=== PATIENT | male | born 1950 | race Caucasian/White ===

== ENCOUNTER 2017-11-13 16:15 | Emergency (ER) | payer MEDICARE ==
[~2017-11-13] VITALS: Ht 195.6 cm; Wt 119.0 kg
[2017-11-13 16:27] VITALS: BP 146/97
== END 2017-11-13 16:30 | disposition left against medical advice (07) ==
LOC: ED 16:15 → LWOBS 16:27
DX: Z91.19 Patient's noncompliance with other medical treatment and regimen (principal)

== ENCOUNTER 2017-12-19 11:02 | Emergency (ER) | payer MEDICARE ==
[~2017-12-19] VITALS: Ht 195.6 cm; Wt 115.0 kg
[2017-12-19] MEDS ORDERED: ULTRAM50 MG PO (11:41)
[2017-12-19] MEDS ORDERED: FLEXERIL5 M1 PO (11:41)
[2017-12-19] MEDS ORDERED: HARVONI PO (11:41)
[2017-12-19] MEDS ORDERED: TOPIRAMATE25 MG PO (11:42)
[2017-12-19] MEDS ORDERED: [UNRECOGNIZED DRUG - REMARK] PO (11:42)
[2017-12-19] MEDS ORDERED: BACTRIM DS1 TAB PO (11:43)
[2017-12-19] MEDS ORDERED: KEFLEX500 M1 PO (11:43)
[2017-12-19 11:47] VITALS: BP 128/77
== END 2017-12-19 11:47 | disposition home or self-care (01) ==
LOC: ED 11:02
DX: L03.115 Cellulitis of right lower limb (principal); I10 Essential (primary) hypertension; B19.20 Unspecified viral hepatitis C without hepatic coma; G89.29 Other chronic pain; M54.5 Low back pain

== ENCOUNTER 2020-12-21 11:26 | Observation (INO) | payer MEDICARE ==
[2020-12-21] VITALS (10 sets, daily range): BP systolic 129–166; BP diastolic 55–83
[~2020-12-21] VITALS: Ht 195.6 cm; Wt 140.0 kg
[~2020-12-21 11:26] MED LIST: BACTRIM DS1 TAB PO; FLEXERIL5 M1 PO; HARVONI PO; KEFLEX500 M1 PO; TOPIRAMATE25 MG PO; ULTRAM50 MG PO; [UNRECOGNIZED DRUG - REMARK] PO
--- NOTE | 2020-12-21 11:26 | NUR ---
PT ARRIVED BY EMS
[2020-12-21 12:11] LABS: GFR 50 ML/MIN (>=60 (CALC)); GFR FOR AFR.AMER. > 60 ML/MIN (>=60 (CALC))
[2020-12-21] MEDS ORDERED: TRAMADOL HYDROC50 M1 PO (12:31)
--- NOTE | 2020-12-21 12:32 | NUR ---
AT BEDSIDE, REPORTS HAS FALLEN 5 X IN THE LAST 24 HOURS, THIS IS NEW FOR HIM, HE REPORTED SHAKING CHILLS YEST AND INCONTINENCE X 2
[2020-12-21 12:38] LABS: ALBUMIN 3.9 g/dL (3.2-5.0); ALKALINE PHOSPHATASE 77 u/l (38-126); ANION GAP 13 (6-22 (CALC)); BILIRUBIN, TOTAL 1.2 mg/dL (0.0-1.4); BUN 16 mg/dL (8-23); BUN/CREATININE RATIO 12 (12-20 (CALC)); CARBON DIOXIDE 22 mmol/l (22-30); CHLORIDE 104 mmol/l (95-108); CREATININE 1.4 mg/dL (0.7-1.3); GFR 50 ML/MIN (>=60 (CALC)); GFR FOR AFR.AMER. > 60 ML/MIN (>=60 (CALC)); POTASSIUM 3.8 mmol/l (3.5-5.1); SGOT/AST 44 u/l (19-48); SODIUM 135 mmol/l (137-146); TOTAL PROTEIN 7.8 g/dL (6.3-8.2)
[2020-12-21 12:44] LABS: URINE BILIRUBIN - DIPSTICK NEGATIVE (NEGATIVE); URINE BLOOD DIPSTICK NEGATIVE (NEGATIVE); URINE GLUCOSE - DIPSTICK NEGATIVE (NEGATIVE); URINE KETONE NEGATIVE (NEGATIVE); URINE LEUK ESTERASE TRACE (NEGATIVE); URINE PROTEIN - DIPSTICK 30 mg/dL (NEG-TRACE); URINE SPECIFIC GRAVITY 1.025
[2020-12-21 12:44] LABS: HEMATOCRIT 41.2 % (39.0-50.0); HEMOGLOBIN 13.6 g/dl (14.0-18.0); IMMATURE GRANULOCYTES 0.5 % (0.0-5.0); MEAN CELL VOLUME 90.7 fL CALC (80.0-100.0); NEUT# 5.12 thou/uL (1.82-7.42); RED BLOOD COUNT 4.54 mill/uL (4.70-6.10); RED CELL DISTRI WIDTH 14.3 % (11.5-15.5)
[2020-12-21 12:57] LABS: URINE COLOR DK. YELLOW; URINE NITRITE - DIPSTICK NEGATIVE (Negative)
[2020-12-21 12:59] LABS: URINE AMORPH SEDIMENT MODERATE hpf (NONE-FER); URINE EPITHELIAL CELLS FEW EPI/hpf (0-FEW); URINE MUCUS MODERATE hpf (NONE-FEW)
--- NOTE | 2020-12-21 14:24 | NUR ---
ALERT ORIENTED TRANSFER TO W/C FOR MRI
--- NOTE | 2020-12-21 15:18 | NUR ---
PATIENT ARRIVED ON THE FLOOR.
--- NOTE | 2020-12-21 15:40 | NUR ---
Transfer Information Transferred To: ICU Report Given to: NURSE Transported by: [facility] Air Other Transported with: Nurse Transporter Patent IV O2 Director Gift
[2020-12-21] MEDS ORDERED: TRAMADOL HCL E100 M1 PO (16:29)
[2020-12-21] MEDS ORDERED: TRAMADOL HCL50 MG PO (16:29)
--- NOTE | 2020-12-21 16:30 | NUR ---
ADMISSION COMPLETED. PATIENT ASSESSED. BEDSIDE SWALLOW EVAL PERFORMED, NO ISSUES OBSERVED. NIH SCALE OF 0. GAVE PATIENT JUICE HE REQUESTED . SAFETY MEASURES IN PLACE. CALL LIGHT IN REACH. WILL CONTINUE TO MONITOR.
[2020-12-21] MEDS ORDERED: LYRICA50 MG PO (16:59)
[2020-12-21] MEDS ORDERED: NORVASC5 M1 PO (16:59)
[2020-12-21] MEDS ORDERED: CIALIS10 MG PO (17:00)
[2020-12-21] MEDS ORDERED: TOPIRAMATE25 MG PO (17:00)
[2020-12-21] MEDS ORDERED: TAMSULOSIN0.4 MG PO (17:00)
--- NOTE | 2020-12-21 17:50 | NUR ---
SPOKE TO PATIENT'S OVER THE PHONE GAVE HER AN UPDATE. PATIENT FINISHIG UP HIS DINNER. ECHO IS IS IN THE ROOM WITH HIM.
--- NOTE | 2020-12-21 19:45 | NUR ---
RESTING IN BED. AWAKE, ALERT AND ORIENTED X4. SPEECH CLEAR WITH APPROPRIATE RESPONSES TO QUESTIONS. FACE SYMMETRICAL. TONGUE MIDLINE ON EXTENSION. FOLLOWS DIRECTIONS. MOVES ALL EXTREMITIES EQUAL AND WELL. NIH 0. DENIES HEADACHE, VISUAL DISTURBANCES, NUMBNESS OR TINGLING. RESP NON-LABORED. O2 ON AT 2 L NC. BREATH SOUNDS CLEAR THROUGHOUT LUNG SOLANO. NO PERIPHERAL EDEMA, PULSES INATCT. SALINE LOCK INTACT IN RAC AND RH, BOTH SITES BENIGN, DSG CDI. TRAINER SHOWS SR. DISCUSSED PLAN OF CARE. DENIES NEEDS AT THIS TIME. CALL TRAVIS IN REACH.
--- NOTE | 2020-12-21 21:00 | NUR ---
PATIENT ON HIS CELL PHONE SPEAKING WITH FAMILY.
--- NOTE | 2020-12-21 21:45 | NUR ---
RESTING IN BED, WATCHING TV. NO COMPLAINTS VOICED. VSS. MEDICATED WITH UTRAM ORDERED FOR C/O BACKPAIN.
--- NOTE | 2020-12-21 23:55 | NUR ---
ASLEEP. RESP NON-LABORED. VSS. MONITOR SR.
[2020-12-22] VITALS (10 sets, daily range): BP systolic 149–189; BP diastolic 65–93
--- NOTE | 2020-12-22 02:00 | NUR ---
RESTING WITH EYES CLOSED. RESP NON-LABORED. VSS. SR ON MONITOR.
--- NOTE | 2020-12-22 04:10 | NUR ---
SLEEPS SOUNDLY. RESP EVEN AND UNLABORED. VSS. SR ON MONITOR.
--- NOTE | 2020-12-22 05:00 | NUR ---
PATIENT AWAKE TO VOID. NO NEURO DEFICITS NOTED. VSS.
--- NOTE | 2020-12-22 06:03 | NUR ---
PHARMACOMETRICIAN HERE FOR AM LAB DRAW. PATIENT AWAKE, ALERT AND ORIENTED. VSS. SR ON MONITOR.
[2020-12-22 06:16] LABS: HEMATOCRIT 41.6 % (39.0-50.0); HEMOGLOBIN 13.5 g/dl (14.0-18.0); MEAN CELL VOLUME 92.4 fL CALC (80.0-100.0); MEAN CORPUSCULAR HGB CONC 32.5 g/dL CAL (32.0-36.0); RED BLOOD COUNT 4.5 mill/uL (4.70-6.10); RED CELL DISTRI WIDTH 14.4 % (11.5-15.5)
--- NOTE | 2020-12-22 06:42 | NUR ---
pt resting comfortably. nad. vss. burglar alarm mechanic to monitor.
[2020-12-22 06:47] LABS: ANION GAP 13 (6-22 (CALC)); BUN 14 mg/dL (8-23); BUN/CREATININE RATIO 13 (12-20 (CALC)); CALCULATED LDLCHOLESTEROL 103 mg/dL (62-129 (CALC)); CARBON DIOXIDE 22 mmol/l (22-30); CHLORIDE 103 mmol/l (95-108); CHOLESTEROL HDL RATIO 4.7 (<4.4 (CALC)); CREATININE 1.1 mg/dL (0.7-1.3); GFR > 60 ML/MIN (>=60 (CALC)); GFR FOR AFR.AMER. > 60 ML/MIN (>=60 (CALC)); HDL CHOLESTEROL 34 mg/dL (>=40); POTASSIUM 4.3 mmol/l (3.5-5.1); SODIUM 134 mmol/l (137-146); TOTAL CHOLESTEROL 161 mg/dl (0-199); TOTAL TRIGLYCERIDES 118 mg/dl (30-149); VLDL CHOLESTROL 24 mg/dl (0-38 (CALC))
--- NOTE | 2020-12-22 07:35 | NUR ---
pt awake in bed; no apparent distress noted; pt offers complaints of back pain; assessment completed at this time; pt alert and oriented; no n/v noted; resp even and unlabored; lungs clear; skin color wnl; o2 per nc at 2L; hr reg; strong pulses; no edema noted; sr on monitor; abd soft with bs present; no bm noted per database report writer; pt voiding without complication; no redness or edema noted at site; #20 saline locked to rac and rh; no redness or edema noted at site; abrasion noted to right knee s/p fall; NIH 0; pt noted to have problems finding words; no weakness noted per this database report writer at this time; plan of care/am meds explained; pt with complaints of chronic back pain rating 6/10; will medication; call light within reach; will continue to monitor
--- NOTE | 2020-12-22 08:00 | NUR ---
pt awake in bed eating breakfast; no apparent distress noted; medicated for pain; iv' intact; sr on monitor; will continue to monitor
--- NOTE | 2020-12-22 08:10 | NUR ---
speech therapy present at bedside
--- NOTE | 2020-12-22 08:35 | NUR ---
Dr Lyle present at bedside to assess pt and discuss plan of care
--- NOTE | 2020-12-22 09:48 | NUR ---
OT present at bedside
--- NOTE | 2020-12-22 10:00 | NUR ---
awake in room; PT at bedside to work with pt; sr on monitor; iv's intact; no apparent distress noted; no decline in neuro status; will continue to monitor
--- NOTE | 2020-12-22 12:00 | NUR ---
awake in bed conversing on cell phone; no apparent distress noted; iv intact; o2 per nc; no changes in neuro status; call light within reach; will continue to monitor
--- NOTE | 2020-12-22 12:37 | NUR ---
pt transferred to CT scan via wc in stable condition; staff remains with pt
--- NOTE | 2020-12-22 14:05 | NUR ---
awake in bed; spouse present at bedside to assist with bath; iv intact; no apparent distress noted; pt offers no complaints; call light within reach; will continue to monitor
--- NOTE | 2020-12-22 14:54 | NUR ---
pt ambulatory to nurses station with staff x2; steady gait noted; pt deny weakness or shakiness; pt inquiring about discharge; aware test reports have not been released; will continue to monitor
--- NOTE | 2020-12-22 16:14 | NUR ---
pt resting in bed with eyes closed; no apparent distress noted; iv intact; sr on monitor; easily aroused; no changes in neuro status; call light within reach; will continue to monitor
--- NOTE | 2020-12-22 16:38 | NUR ---
Dr Lyle called per chief writer; home meds to be reviewed
--- NOTE | 2020-12-22 18:10 | NUR ---
awake conversing on cell phone; no apparent distress noted; pt offers no complaints; iv intact; sr on monitor; ra; no changes in neuro status; call light within reach
--- NOTE | 2020-12-22 19:30 | NUR ---
REPORT GIVEN BY ADRIANNA. PATIENT RESTING IN BED WATCHING TV. RESP EVEN AND UNLABORED. NO S/S OF DISTRESS NOTED. FALL AND SAFTEY PRECAUTIONS IN PLACE. PATIENT STATES THAT IT SEEMS THAT HIS SYMPTOMS HAVE RESOLVED. IV SALINE LOCKED. USING THE URINAL AT THE BEDSIDE. PLAN OF CARE DISCUSSED. PATIENT INFORMED TO CALL WITH ANY QUESTIONS OR CONCERNS.
--- NOTE | 2020-12-22 22:00 | NUR ---
PATIENT RESTING WITH EYES CLOSED. RESP EVEN AND UNLABORED. NO S/S OF DISTRESS NOTED.
[2020-12-23] VITALS: BP 176/70
--- NOTE | 2020-12-23 00:04 | NUR ---
PATIENT RESTING WITH EYES CLOSED. RESP EVEN AND UNLABORED. NO S/S OF DISTRESS NOTED. FALL AND SAFTEY PRECAUTIONS IN PLACE.
[2020-12-23 02:00] VITALS: BP 163/69
--- NOTE | 2020-12-23 02:00 | NUR ---
PATIENT USED A GLASS THAT WAS ON THE BEDSIDE TABLE FOR A URINAL. PATIENT CALLED OUT TO STAFF TO HELP CLEAN UP THE MESS. PATIENT REMOVED TELE AND BP CUFF TO USE THE BATHROOM TO HAVE A BOWEL MOVEMENT. NO S/S OF DISTRESS NOTED. FALL AND SAFTEY PRECAUTIONS IN PLACE.
[2020-12-23 04:00] VITALS: BP 161/72
--- NOTE | 2020-12-23 04:55 | NUR ---
PATIENT RESTING WITH EYES CLOSED. NO S/S OF DISTRESS NOTED. FALL AND SAFTEY PRECAUTIONS IN PLACE.
--- NOTE | 2020-12-23 07:05 | NUR ---
pt awake in bed; no apparent distress noted; assessment completed at this time; pt alert and oriented; admits to back pain; will medicate; no n/v noted; resp even and unlabored; lungs clear; skin color wnl; ra; hr reg; strong pulses; no edema noted; sr on monitor; abd soft with bs present; no bm noted per medical underwriter; pt voiding taylor urine; urinal at bedside; #20 flushed and patent to rac and rh; no redness or edema noted at sites; abrasions noted to right forehead and right knee; negative NIH; plan of care/ am meds explained; call light within reach; will continue to monitor
[2020-12-23 08:07] VITALS: BP 174/95
--- NOTE | 2020-12-23 08:13 | NUR ---
awake in bed; bp elevated; am meds prev administered; pt medicated for complaints of back pain; sr on monitor; inquiring discharge; iv intact; call light within reach; will continue to monitor
--- NOTE | 2020-12-23 09:11 | NUR ---
Dr Walsh and Rashaun Beard present at bedside to assess pt and discuss plan of care
[2020-12-23] MEDS ORDERED: ADLT ASA LOW81 MG PO (09:16)
--- NOTE | 2020-12-23 09:56 | NUR ---
Nunu from Hospice present at bedside
[2020-12-23 10:17] VITALS: BP 166/77
--- NOTE | 2020-12-23 10:18 | NUR ---
awake in bed; no apparent distress; iv intact; sr on monitor; call light within reach; will continue to monitor
--- NOTE | 2020-12-23 10:38 | NUR ---
PT at bedside
--- NOTE | 2020-12-23 10:56 | NUR ---
Patient did bed mobility log rolling and sit to stand push off transfer ADLs with Mod I level with occasional verbal cuing to decrease trick movements and fall risks. Patient did Tinetti balance test and scored 26/28 and TUG test score at 12 seconds, both indicative for low fall risks and improving dynamic balance capability on a variety of walking surfaces. Patient also did B LE AROM exercises in seated position doing hip flexion, hip extension, hip adduction and abduction, hamstring curls, knee extension, and ankle AROM for 10 reps x 2 sets with occasional verbal and tactile cuing with Mod I level.
--- NOTE | 2020-12-23 11:11 | NUR ---
awake in bed; discharge instructions reviewed; iv's removed with cath tips intact; awaiting spouse machine operator picker;
--- NOTE | 2020-12-23 11:35 | NUR ---
spouse present at bedside; discharge instructions reviewed with spouse and she admits to understanding; Discharge instructions given. Patient verbalizes understanding of same. Discharged in good condition via Wheelchair to Home with spouse. All belongings sent with pt.
== END 2020-12-23 11:35 ==
LOC: ED 11:26 → ED-I 13:10 → ED 14:29 → ICU 14:30
PROVIDERS: Family Medicine; Nurse Practitioner; ADMIT Internal Medicine; ATTEND Internal Medicine
DX: R47.01 Aphasia (principal); R47.1 Dysarthria and anarthria; I67.82 Cerebral ischemia; R53.1 Weakness; R25.1 Tremor, unspecified; S00.81XA Abrasion of other part of head, initial encounter; R09.02 Hypoxemia; I10 Essential (primary) hypertension; S80.212A Abrasion, left knee, initial encounter; S80.211A Abrasion, right knee, initial encounter; B19.20 Unspecified viral hepatitis C without hepatic coma; M54.9 Dorsalgia, unspecified; G89.29 Other chronic pain; W19.XXXA Unspecified fall, initial encounter; Z91.81 History of falling; Z20.822 Contact with and (suspected) exposure to COVID-19
CPT/HCPCS: Q9967

== ENCOUNTER 2021-04-23 16:17 | Inpatient (IN) | payer MEDICARE ==
[~2021-04-23] VITALS: Ht 195.6 cm; Wt 137.0 kg
[~2021-04-23 16:17] MED LIST changes: +ADLT ASA LOW81 MG PO; +CIALIS10 MG PO; +LYRICA50 MG PO; +NORVASC5 M1 PO; +TAMSULOSIN0.4 MG PO; +TRAMADOL HCL E100 M1 PO; +TRAMADOL HCL50 MG PO; +TRAMADOL HYDROC50 M1 PO
--- NOTE | 2021-04-23 16:55 | NUR ---
TO ROOM TO TRIAGE
[2021-04-23 17:36] LABS: HEMATOCRIT 45.1 % (39.0-50.0); HEMOGLOBIN 14.7 g/dl (14.0-18.0); IMMATURE GRANULOCYTES 0.4 % (0.0-5.0); MEAN CELL VOLUME 92.4 fL CALC (80.0-100.0); MEAN CORPUSCULAR HGB 30.1 pG CALC (26.0-32.0); MEAN CORPUSCULAR HGB CONC 32.6 g/dL CAL (32.0-36.0); NEUT# 3.64 thou/uL (1.82-7.42); RED BLOOD COUNT 4.88 mill/uL (4.70-6.10); RED CELL DISTRI WIDTH 14.5 % (11.5-15.5)
[2021-04-23 17:52] LABS: ALBUMIN 4.1 g/dL (3.2-5.0); CREATININE 1.6 mg/dL (0.7-1.3); POTASSIUM 3.8 mmol/l (3.5-5.1); TOTAL PROTEIN 8.6 g/dL (6.3-8.2)
[2021-04-23 18:01] LABS: BILIRUBIN, TOTAL 1.8 mg/dL (0.0-1.4)
--- NOTE | 2021-04-23 18:33 | NUR ---
Reassessment of patient completed. No distress noted.
--- NOTE | 2021-04-23 19:45 | NUR ---
TRT START HIGH FLOW CANNULA ON THE PATIENT
[2021-04-23 22:03] LABS: URINE BLOOD DIPSTICK MODERATE (NEGATIVE); URINE GLUCOSE - DIPSTICK NEGATIVE (NEGATIVE); URINE KETONE NEGATIVE (NEGATIVE); URINE LEUK ESTERASE NEGATIVE (NEGATIVE); URINE PROTEIN - DIPSTICK 100 mg/dL (NEG-TRACE); URINE SPECIFIC GRAVITY >=1.030
[2021-04-23 22:07] LABS: URINE BILIRUBIN - DIPSTICK SMALL (NEGATIVE); URINE COLOR AMBER; URINE NITRITE - DIPSTICK POSITIVE (Negative)
[2021-04-23 22:21] LABS: URINE BACTERIA RARE hpf; URINE WBC 0-2 WBC/hpf (0-5)
[2021-04-23 22:22] LABS: URINE COARSE GRANULAR CAST MANY lpf
--- NOTE | 2021-04-23 22:37 | NUR ---
PT. CONT. TO REMOVE O2. SAT'S DECREASE TO 82-83%. PT. INSTRUCTED TO LEAVE O2 NC IN PLACE, VERBALIZED UNDERSTANDING.
--- NOTE | 2021-04-23 22:55 | NUR ---
RESP. THERAPIST IN ROOM TO SPEAK WITH PT.
--- NOTE | 2021-04-24 00:38 | NUR ---
PT. HAS BEEN KEEPING HIS O2 IN PLACE, O2 SAT NOW 91%.
--- NOTE | 2021-04-24 04:06 | NUR ---
RESTING QUIETLY EYES CLOSED, AWAKENS EASILY, RESP. EVEN AND UNLABORED. O2 ON. NO C/O.
[2021-04-24 04:53] LABS: HEMATOCRIT 45.2 % (39.0-50.0); HEMOGLOBIN 14.7 g/dl (14.0-18.0); IMMATURE GRANULOCYTES 0.9 % (0.0-5.0); MEAN CORPUSCULAR HGB 30.6 pG CALC (26.0-32.0); MEAN CORPUSCULAR HGB CONC 32.5 g/dL CAL (32.0-36.0); NEUT# 2.69 thou/uL (1.82-7.42); RED BLOOD COUNT 4.81 mill/uL (4.70-6.10); RED CELL DISTRI WIDTH 14.3 % (11.5-15.5)
--- NOTE | 2021-04-24 04:53 | NUR ---
PT. PLACED ON HOSPITAL BED FOR COMFORT.
[2021-04-24 05:11] LABS: ALBUMIN 3.8 g/dL (3.2-5.0); BILIRUBIN, TOTAL 1.2 mg/dL (0.0-1.4); C-REACTIVE PROTEIN 5.3 mg/dL (0-0.9); CREATININE 1.5 mg/dL (0.7-1.3); TOTAL PROTEIN 7.7 g/dL (6.3-8.2)
[2021-04-24 05:15] LABS: POTASSIUM 4.8 mmol/l (3.5-5.1)
--- NOTE | 2021-04-24 05:30 | NUR ---
PT. INCONTINENT OF A MODERATE AMT. OF URINE, [place] CARE GIVEN WITH COMPLETE BED CHANGE. O2 SAT DECREASED DURINE BED CHANGE. AND WILL RISE SLOWLY.
--- NOTE | 2021-04-24 06:30 | NUR ---
REPORT TO AJKUB SHARIF.
--- NOTE | 2021-04-24 07:00 | NUR ---
REPORT RECEIVED FROM CHANTE LOJA
[2021-04-24] MEDS ORDERED: ATORVASTATIN CA10 MG PO (08:02)
--- NOTE | 2021-04-24 08:15 | NUR ---
PT FINISHED BREAKFAST. VITALS STABLE. NOW ON VAPOTHERM 40L/MIN SAT'S IN THE LOW 90'S. NO DISTRESS OR LABORED BREATHING NOTED. TOLERATING WELL AT THIS TIME. CALL LIGHT WITHIN REACH, BED IN LOW POSITION.
--- NOTE | 2021-04-24 09:17 | NUR ---
IV MEDS INFUSING WITHOUT DIFFICULTY. MORNING MEDS GIVEN. TOLERATED WELL.
--- NOTE | 2021-04-24 10:07 | NUR ---
RESTING, EYES CLOSED. NO CHANGES
--- NOTE | 2021-04-24 10:47 | NUR ---
JACKY RUSHING TO RT TO START THE PATIENT IN A NON REBLIND
--- NOTE | 2021-04-24 11:10 | NUR ---
RT START THE PATIENT IN A VAPORTERM AT 40 LT AND NON REBLIDING AT 20%
--- NOTE | 2021-04-24 12:00 | NUR ---
PATIENT WAS SWITCH TO BPAP
--- NOTE | 2021-04-24 18:45 | NUR ---
Reassessment of patient completed. No distress noted.
--- NOTE | 2021-04-24 21:14 | NUR ---
Transfer Information Transferred To: ICU Report Given to: DANO SHARIF Transported by: N [facility] Y [facility] Transport [facility]. N Air N Other Transported with: Y Nurse Y Transporter Y Patent IV Y O2 Y Leather Stamper
--- NOTE | 2021-04-24 21:30 | NUR ---
RECEIVED FROM ER VIA BED ON BIPAP, ACCOMPANIED BY RT AND ER NURSE. PLACED ON PEDIATRICS HOSPITALIST SHOWING SR. O2 SAT 96%
--- NOTE | 2021-04-24 21:45 | NUR ---
RESP SLT LABORED AT REST. ON BIPAP 18/10, RR 24, FIO2 100% BREATH SOUNDS DIMINISHED THROUGHOUT. NO PERIPHERAL EDEMA, PULSE INTACT. DISCUSSED PLAN OF CARE. DENIES NEEDS AT THIS TIME. CALL TRAVIS IN REACH.
[2021-04-24 22:00] VITALS: BP 156/97
[2021-04-24 23:00] VITALS: BP 160/94
[2021-04-25] VITALS (25 sets, daily range): BP systolic 148–195; BP diastolic 80–104
--- NOTE | 2021-04-25 | NUR ---
PATIENT IS AWAKE, WATCHING TV. NO COMPLAINTS VOICED. TOLERATING BIPAP WELL. O2 SAT 96%
--- NOTE | 2021-04-25 02:00 | NUR ---
RESTING WITH EYES CLOSED. VSS. BIPAP IN PLACE SAME SETTINGS.
--- NOTE | 2021-04-25 04:00 | NUR ---
RESTING WITH EYES CLOSED. VSS. SR ON MONITOR.
--- NOTE | 2021-04-25 05:45 | NUR ---
MEDICATED WITH ULTRAM FOR C/O PAIN. REMAINS ON BIPAP VSS. SR ON MONITOR. IV NS AT 75 ML/HR INFUSING WITHOUT INCIDENT. VSS.
[2021-04-25 06:17] LABS: ALBUMIN 3.5 g/dL (3.2-5.0); ALKALINE PHOSPHATASE 66 u/l (38-126); ANION GAP 14 (6-22 (CALC)); BILIRUBIN, TOTAL 0.9 mg/dL (0.0-1.4); BUN 40 mg/dL (8-23); BUN/CREATININE RATIO 34 (12-20 (CALC)); CARBON DIOXIDE 26 mmol/l (22-30); CHLORIDE 109 mmol/l (95-108); CREATININE 1.2 mg/dL (0.7-1.3); GFR 60 ML/MIN (>=60 (CALC)); GFR FOR AFR.AMER. > 60 ML/MIN (>=60 (CALC)); SGOT/AST 192 u/l (19-48); SODIUM 145 mmol/l (137-146); TOTAL PROTEIN 7.5 g/dL (6.3-8.2)
[2021-04-25 06:20] LABS: HEMATOCRIT 44.9 % (39.0-50.0); HEMOGLOBIN 14.5 g/dl (14.0-18.0); IMMATURE GRANULOCYTES 0.5 % (0.0-5.0); MEAN CELL VOLUME 93.9 fL CALC (80.0-100.0); MEAN CORPUSCULAR HGB 30.3 pG CALC (26.0-32.0); MEAN CORPUSCULAR HGB CONC 32.3 g/dL CAL (32.0-36.0); NEUT# 5.58 thou/uL (1.82-7.42); RED BLOOD COUNT 4.78 mill/uL (4.70-6.10)
[2021-04-25 07:19] LABS: POTASSIUM 3.8 mmol/l (3.5-5.1)
--- NOTE | 2021-04-25 07:30 | NUR ---
PATIENT IN BED AT THIS TIME ON BI-PAP. PATIENT STATES HE ONLY HAS SOME DISCOMFORT WHEN HE BREATHS IN DEEP. PATIENT STATES AT THIS TIME HE DOESN'T HAVE PAIN. PATIENT HAS NO COUGH AT THIS TIME. BREATH SOUNDS AND LUNG FIELD ARE DIMINISHED. PATIENTS SPO2 IS CURRENTLY 93%. PATIENT HAS FLAKY SKIN TO FOREHEAD PATINET IS ALERT AND ORIENTED X 3. SIDERAILS ARE UP CALL LIGHT WITHIN REACH SPORTS INFORMATION DIRECTOR IS READING 68 S/R AT THIS TIME. WILL CONTINUE TO MONITOR.
--- NOTE | 2021-04-25 08:18 | NUR ---
PT PLACED ON VAPOPHAM. 40l 100% SAT 90%
--- NOTE | 2021-04-25 09:09 | NUR ---
RESPIRATORY PLACED PATIENT ON VAPOR-THERM AT THIS TIME SETTINGS ARE 40L/100% HUMIDITY AND A NON RE-BREATHER IF PATIENT IS SHORT OF BREATH. PATIENTS SPO2 AT THIS TIME IS 2% WILL CONTINUE TO MONITOR,,.
--- NOTE | 2021-04-25 10:00 | NUR ---
PATIENT RESTING IN BED AT THIS TIME. PATIENT PER RESPIRATORY IS BEING PLACED BACK ON BI-PAP AT THIS TIME DUE TO SPO2 ON VAPO-THERM ONLY 84%. PATIENT STATES HIS PAIN LEVEL IS "0" AT THIS TIME BUT WILL CONTINUE TO MONITOR.
--- NOTE | 2021-04-25 12:00 | NUR ---
LUAN REMAINS ON BI-PAP AT THIS TIME. PATIENT DENIES ANY NEEDS CURRENTLY SPO2 AT THIS TIME IS 94%. GAS METER READER READING SR AT HR 75. SIDERAILS ARE UP X TWO CALL LIGHT IS WITHIN REACH. WILL CONTINUE TO MONITOR.
--- NOTE | 2021-04-25 13:18 | NUR ---
PATIENT REMAINS ON BI-PAP RESTING COMFORTABLY IN BE DENEIS ANY NEED FOR PAIN MEDICATION AT THIS TIME.
--- NOTE | 2021-04-25 14:05 | NUR ---
PATIENT COMPLAINING OF GENERALIZED BODY PAIN AT THIS TIME. PATIENT STATES IT IS A "4" OUT OF THE PAIN SCALE OF 0-10. 15MG OF TORODOL GIVEN IV AT THIS TIME WILL CONTINUE TO MONITOR. PATIENT REMAINS ON BI-PAP AT THIS TIME AND SPO2 CURRENTLY IS 93% AT THIS TIME. SAND MOLDER IS READING SR/HR OF 77 WITH ONE PVC. SIDERAILS ARE UP CALL LIGHT IS WIHTIN REACH.
--- NOTE | 2021-04-25 14:30 | NUR ---
PATIENT STATES PAIN MEDICATION WORKING AND PAIN LEVEL IS DOWN TO A "2" OUT OF THE PAIN SCALE OF 0-10.
--- NOTE | 2021-04-25 15:47 | NUR ---
RESPIRATORY CALLED AT THIS TIME DUE TO PATIENT WANTING TO COME OFF OF THE BI-PAP TO EAT AT THIS TIME. RT CALLED AND STATED THEY WOULD BE OVER TO TAKE PATIENT OFF OF BI-PAP AND TO MONITOR. SPO2 CURRENTLY AT THIS TIME IS 94%
--- NOTE | 2021-04-25 16:05 | NUR ---
PATIENT LAYING IN BED AT THIS TIME OFF OF BI-PAP AND ON VAPO-THERM WHILE EATING. [place] MACHINE OPERATOR READING SR/HR OF 82 WITH OCCASSIONAL PVC'S CURRENT SPO2 IS 89% AND PATIENT ADVISED TO USE NON-REBREATER HELP TO MAINTAIN O2 ABOVE 90% WHILE BEING OFF OF BI-PAP. PATIENT DENIES ANY PAIN AT THIS TIME AND SIDERAILS ARE UP CALL LIGHT IS WITHIN REACH.
--- NOTE | 2021-04-25 18:09 | NUR ---
PATIENT RESTING IN BED AT THIS TIME ON BI-PAP BLOOD PRESSURE IS 183/104 10MG OF APRESOLINE GIVEN AT THIS TIME WILL MONITOR BP.
--- NOTE | 2021-04-25 18:30 | NUR ---
PATIENTS BP RE-CHECKED AT THIS TIME IS 178/84 BP IS TRENDING DOWN SINCE APRESOLINE 10MG GIVEN AT 1815. WILL CONTINUE TO MONITOR.
--- NOTE | 2021-04-25 19:45 | NUR ---
awake. voiding. bipap pushed to side of face-replaced. instructed pt about need for bipap. sob with ANY exertion. desats quickly into the 80's. vehicle monitor technician shows sinus rhythm hr 76. #20 lfa ns infusing @ 75cchr. po fluids taken poor. voids per urinal. fall & air/contact precautions cont.
--- NOTE | 2021-04-25 21:45 | NUR ---
medicated for cough as requested.
[2021-04-26] VITALS (18 sets, daily range): BP systolic 91–203; BP diastolic 52–115
--- NOTE | 2021-04-26 00:01 | NUR ---
awake. watching tv. resps remain labored. bipap cont
--- NOTE | 2021-04-26 02:00 | NUR ---
awake. bipap conts.
--- NOTE | 2021-04-26 04:15 | NUR ---
lab here. blood drawn.
[2021-04-26 05:17] LABS: HEMATOCRIT 44.2 % (39.0-50.0); HEMOGLOBIN 14.2 g/dl (14.0-18.0); MEAN CELL VOLUME 93.2 fL CALC (80.0-100.0); MEAN CORPUSCULAR HGB CONC 32.1 g/dL CAL (32.0-36.0); RED BLOOD COUNT 4.74 mill/uL (4.70-6.10); RED CELL DISTRI WIDTH 13.9 % (11.5-15.5)
[2021-04-26 05:38] LABS: ANION GAP 12 (6-22 (CALC)); BUN 31 mg/dL (8-23); BUN/CREATININE RATIO 35 (12-20 (CALC)); CARBON DIOXIDE 26 mmol/l (22-30); CHLORIDE 113 mmol/l (95-108); CREATININE 0.9 mg/dL (0.7-1.3); GFR > 60 ML/MIN (>=60 (CALC)); GFR FOR AFR.AMER. > 60 ML/MIN (>=60 (CALC)); POTASSIUM 4.1 mmol/l (3.5-5.1); SODIUM 146 mmol/l (137-146)
[2021-04-26 05:43] LABS: MAGNESIUM 2.7 mg/dL (1.6-2.3)
--- NOTE | 2021-04-26 06:00 | NUR ---
awake all night. bipap cont. cafeteria monitor shows sinus rhythn hr 81.
--- NOTE | 2021-04-26 08:15 | NUR ---
PATIENT LAYING IN BED AT THIS TIME. RESPIRATORY IN TO PLACE PATIENT ON VAPO-THERM TO EAT. PATIENTS SP02 IS 88% AT THIS TIME. PATIENT RE-EDUCATED ON GOING BACK ON BI-PAP AFTER BREAKFAST. PATIENT'S WEED CONTROL INSPECTOR DONE AT THIS TIME SEE INTERVENTIONS. DR. BROOKS NOTIFIED OF BLOOD PRESSURE INCREASE AND NEW ORDERS GIVEN AT THIS TIME. SIDERAILS ARE UP CALL LIGHT IS WITHIN REACH.
--- NOTE | 2021-04-26 09:48 | NUR ---
PATIENT PLACED BACK ON BI-PAP AT THIS TIME AND SPO2 IS NOW 93% AT THIS TIME. WILL CONTIUE TO MONITOR.
--- NOTE | 2021-04-26 10:09 | NUR ---
PATIENT LAYING IN BED AT THIS TIME. PATIENT IS ON BI-PAP AND SPO2 AT THIS TIME IS 96%. PATIENT BP IS 180/88 AND IS DECREASING SINCE ADDED 5MG OF AMOLODIPINE AND 10 MG OF LISINOPRIL THAT WAS GIVNEN AT 09:30. PATIENT WILL CONTINUE TO BE MONITORED AT THIS TIME.
--- NOTE | 2021-04-26 10:30 | NUR ---
pt on niv c nnad. in bed, awake. comfortable. vss. no changes at this time. neck band maker to monitor.
--- NOTE | 2021-04-26 11:04 | NUR ---
PHYSICAL THERAPY IN TO SEE PATIENT AT THIS TIME. PATIENT HELP UP TO THE CHAIR AT THIS TIME. PATIENT SITTING IN CHAIR ON BI-PAP WILL CONTINUE TO MONITOR.
--- NOTE | 2021-04-26 12:15 | NUR ---
PATIENT REMAINS UP IN CHAIR AT THIS TIME. PATIENT REMAINS ON BI-PAP AND SPO2 CURRENTLY AT THIS TIME IS 100%. PATIENTS BP AT THIS TIME IS 168/89. PATIENT WILL CONTINUE TO BE MONITORED. CALL LIGHT AND PERSONAL ITEMS ARE WITHIN REACH AT THIS TIME.
--- NOTE | 2021-04-26 14:05 | NUR ---
PATIENT UP STANDING AT BEDSIDE AT THIS TIME. PATIENT ADVISED TO SIT IN CHAIR AND BI-PAP FACE MASK ADJUSTED ACCORDINGLY. PATIENT SPO2 IS CURRENTLY 100% AND BP IS CURRENTLY 153/83. PATIENT CALL LIGHT REMAINS NEAR WELL PERSONAL BELONGINGS. PATIENT WILL CONTINUE TO BE MONITORED.
--- NOTE | 2021-04-26 15:08 | NUR ---
weaned pr pt spo2.
--- NOTE | 2021-04-26 16:10 | NUR ---
PATIENT REMAINS UP IN CHAIR AT THIS TIME. PATIENT REMAINS ON BI-PAP AND SETTINGS ARE UNCHANGED. PATIENTS CYLINDER DIE MACHINE OPERATOR IS READING AT THIS TIME. SR/HR 94 AND SPO2 IS 91%. PATIENT SHOWS SING OF SHORTNESS OF BREATH UPON EXCERTIONS OF ANY KIND. CALL LIGHT IS WITHIN REACH WELL PERSONAL BELONGINGS.
--- NOTE | 2021-04-26 17:39 | NUR ---
PATIENT TAKEN OFF OF BI-PAP AT THIS TIME TO EAT DINNER. PATIENT SHOWS NO SIGNS OF RESPIRATORY DISTRESS AT THIS TIME. PATIENTS PULSE OX IS 88% PATIENT REMEINDED TO SLOW RESPIRATIONS DOWN AND CONCENTRATE ON BREATHING. PATIENT FOLLOWING ALL COMMANDS AND EATING DINNER WELL. WILL CONTINUE TO MONITOR.
--- NOTE | 2021-04-26 19:00 | NUR ---
pulse ox shows 73%. bipap off & is alarming. pt has bipap off-replaced. spoke to pt FIRMLY about benefits of bipap. pt verbalized understanding. site monitor shows sinus rhythm. #20 rfa ns infusing @ 75cchr. po fluids taken fair. voided per urinal. fall & air/contact precautions cont.
--- NOTE | 2021-04-26 20:58 | NUR ---
medicated for cough as requested.
[2021-04-27] VITALS (36 sets, daily range): BP systolic 85–209; BP diastolic 52–119
--- NOTE | 2021-04-27 00:01 | NUR ---
awake. anxious. expressed his fear. said "i'm afraid." pt reassured.
--- NOTE | 2021-04-27 02:00 | NUR ---
taking short naps. sob w any exert.
--- NOTE | 2021-04-27 03:30 | NUR ---
has removed bipap twice in 15 minutes. sats dropped to 73%-replaced. pt c/o sob. took several minutes before pt recover to a sat of 94%.
--- NOTE | 2021-04-27 04:00 | NUR ---
lab here. blood drawn.
[2021-04-27 04:32] LABS: HEMOGLOBIN 14.7 g/dl (14.0-18.0); MEAN CELL VOLUME 93.9 fL CALC (80.0-100.0); NEUT# 7.54 thou/uL (1.82-7.42); RED BLOOD COUNT 4.9 mill/uL (4.70-6.10); RED CELL DISTRI WIDTH 14.1 % (11.5-15.5)
[2021-04-27 05:04] LABS: ALBUMIN 3.4 g/dL (3.2-5.0); ALKALINE PHOSPHATASE 77 u/l (38-126); ANION GAP 11 (6-22 (CALC)); BUN 24 mg/dL (8-23); BUN/CREATININE RATIO 26 (12-20 (CALC)); C-REACTIVE PROTEIN 3.9 mg/dL (0-0.9); CARBON DIOXIDE 25 mmol/l (22-30); CHLORIDE 116 mmol/l (95-108); CREATININE 0.9 mg/dL (0.7-1.3); GFR > 60 ML/MIN (>=60 (CALC)); GFR FOR AFR.AMER. > 60 ML/MIN (>=60 (CALC)); POTASSIUM 4.4 mmol/l (3.5-5.1); SGOT/AST 173 u/l (19-48); SODIUM 148 mmol/l (137-146); TOTAL PROTEIN 7.2 g/dL (6.3-8.2)
--- NOTE | 2021-04-27 05:52 | NUR ---
bipap conts. electronic device monitor shows sinus tach 105.
--- NOTE | 2021-04-27 07:00 | NUR ---
ASSUMED CARE OF MD FROM PERCY IBANEZ. PT IS IN ST ON MONITOR. PT PULLING AT BIPAP. REMINDED PT TO LEAVE IT ON AND NOT TO PULL AT IT.
--- NOTE | 2021-04-27 07:40 | NUR ---
PT CONTINUING TO PULL AT BIPAP. DISCUSSED NEXT STEP IS INTUBATION AND TO LEAVE THE BIPAP ON. PT MEDICATED PER EMAR, INCLUDING PRNS FOR HTN AND PAIN. PT LACED ON SIDE TO TRY TO ASSIST WITH BREATHING.
--- NOTE | 2021-04-27 11:25 | NUR ---
PT PULLING AT BIPAP AND TRYING TO USE URINAL. PT REMINDED TO LEAVE BIPAP ALONE. BATHED PT WITH COREEN OLIVO AND REPOSITIONED HIM. PT DENIES ANY FURTHER NEEDS AT THIS TIME
--- NOTE | 2021-04-27 11:32 | NUR ---
no chnages at this time. paperhanger pipe to monitor.
--- NOTE | 2021-04-27 12:15 | NUR ---
PT SLEEPING IN BED, BP DECREASED TO WNL, BIPAP IN PLACE
--- NOTE | 2021-04-27 14:17 | NUR ---
Patient underwent PT intervention today. Patient did log rolling bed mobility today (1 to 3 reps, with patient trying to fix displacement on hospital bed while adjusting the Bi-pap machine, patient was later advised not to remove the Bi-pap machine) with constant verbal and tactile cuing. Patient did B LE AAROM exercises doing hip flexion, hip adduction, hip abduction, hamstring curls, knee extension, gluteal squeezes, and ankle pumps for 10 reps x 2 sets with occasional verbal and tactile cuing.
--- NOTE | 2021-04-27 14:34 | NUR ---
pt repositioned, reminded again to leave bipap alone. medicated per emar.
--- NOTE | 2021-04-27 16:24 | NUR ---
Harshil was received in bed and completed bed mobility, UE ROM and strength Luanne. He demonstrates good strength and reports self feeding and completing BM at bedside commode. AM-PAC score of 13.
--- NOTE | 2021-04-27 17:31 | NUR ---
PT CONSISTANTLY REMINDED TO LEAVE BIPAP ALONE, HE CONTINUES TO PULL AT IT.
--- NOTE | 2021-04-27 19:00 | NUR ---
[id number] sao2 72%. bipap off. color cyanotic. bipap replaced & sao2 increased to 94%. pt frequently attempting to remove bipap even though this verse writer is @ bedside. dr morales notified. orders rec'd for intubation. rt here. dr brown notified.
--- NOTE | 2021-04-27 19:45 | NUR ---
[id number] dr brown here & has tried several times to intubate without success. pt difficult intubation & began to have bleeding. steam distribution supervisor here & has contacted locomotive firer from home for assist. pt placed back on bipap for assist. #16 batista placed per jermain ;))) with immediate return of clear yellow urine. locomotive firer arrived @ 2024 & intubated pt. locomotive firer attempted ngt without success. pcxr obtained. bilat wrist restraints applied. notified of change in condition.
[2021-04-28] VITALS (22 sets, daily range): BP systolic 92–162; BP diastolic 42–76
--- NOTE | 2021-04-28 00:01 | NUR ---
vent cont assisted by pt. product steward shows sinus tach hr 110.
--- NOTE | 2021-04-28 02:00 | NUR ---
vent cont assisted by pt. ivf infusing well. hob remains elevated.
--- NOTE | 2021-04-28 05:00 | NUR ---
xray here. pcxr obtained.
--- NOTE | 2021-04-28 05:39 | NUR ---
lab here blood drawn. rt here. abgs drawn.
[2021-04-28 06:16] LABS: HEMATOCRIT 43.7 % (39.0-50.0); HEMOGLOBIN 13.5 g/dl (14.0-18.0); MEAN CELL VOLUME 98.2 fL CALC (80.0-100.0); MEAN CORPUSCULAR HGB 30.3 pG CALC (26.0-32.0); MEAN CORPUSCULAR HGB CONC 30.9 g/dL CAL (32.0-36.0); RED BLOOD COUNT 4.45 mill/uL (4.70-6.10); RED CELL DISTRI WIDTH 14.5 % (11.5-15.5)
[2021-04-28 06:22] LABS: ANION GAP 10 (6-22 (CALC)); BUN 31 mg/dL (8-23); BUN/CREATININE RATIO 27 (12-20 (CALC)); CARBON DIOXIDE 24 mmol/l (22-30); CHLORIDE 118 mmol/l (95-108); CREATININE 1.1 mg/dL (0.7-1.3); GFR > 60 ML/MIN (>=60 (CALC)); GFR FOR AFR.AMER. > 60 ML/MIN (>=60 (CALC)); MAGNESIUM 2.4 mg/dL (1.6-2.3); POTASSIUM 4.5 mmol/l (3.5-5.1); SODIUM 147 mmol/l (137-146)
--- NOTE | 2021-04-28 07:14 | NUR ---
ASSUMED CARE OF PT FROM PERCY DOBSON. PT INTUBATED AND SEDATED. NO S/S OF DISTRESS NOTED.
--- NOTE | 2021-04-28 08:04 | NUR ---
ATTEMPTED SBT THIS REMYNIONG. DCd WITHIN 5 MIN PER PT RR >45 BPM. CARBON CUTTER TO MONITOR.
--- NOTE | 2021-04-28 09:30 | NUR ---
AT BEDSIDE PLACING CENTRAL LINE
--- NOTE | 2021-04-28 10:00 | NUR ---
ATTEMPTED TO PLACE NG TUBE THROUGH LEFT NARE, AND OG TUBE. UNSUCESSFUL.
--- NOTE | 2021-04-28 10:13 | NUR ---
CHEST XRAY COMPLETED TO VERFIY LINE PLACEMENT
--- NOTE | 2021-04-28 10:17 | NUR ---
titrated vent paramters as per pt spo2. pt saida well at this time. changed hme. nad. vss. goring cutter to monitor.
--- NOTE | 2021-04-28 14:45 | NUR ---
Patient wasn't able to participate with PT intervention today because he was intubated last night.
--- NOTE | 2021-04-28 17:15 | NUR ---
PT TEMP 100.1 OBTAINED ORDER FOR TYELNOL SUPP. MEDICATED PER EMAR.
--- NOTE | 2021-04-28 20:00 | NUR ---
SEDATED WITH DIPRIVAN AT 30MCG/KG/MIN SALINE INFUSING AT 75CC/HR TO LEFT SC TLC SITE LOOKS GOOD MONITOR SHOWS ST 101-115 ON VENT TV 500 RATE 34 FIO2 70% PEEP +8 SAT 98% SX BLOODY SECRETIONS FROM ETT THICK FOLWY PATENT WITH YARIEL URINE
--- NOTE | 2021-04-28 22:06 | NUR ---
no changes noted
--- NOTE | 2021-04-28 23:45 | NUR ---
TYLENOLS SUPP GIVEN FOR TEMP 100.7 AXILLARY
[2021-04-29] VITALS (23 sets, daily range): BP systolic 93–171; BP diastolic 55–93
--- NOTE | 2021-04-29 00:23 | NUR ---
dried blood cleaned from pts mouth sx ett for scan bloody secretions
--- NOTE | 2021-04-29 01:16 | NUR ---
TEMP RECHECK STILL 100.7 AXILLARY
--- NOTE | 2021-04-29 04:20 | NUR ---
AM LABS DRAWN FOR TLC
--- NOTE | 2021-04-29 04:27 | NUR ---
REMAINS ON VENT WITH SAME SETTINGS MONITOR SHOWS ST RATE 100-105 DIPRIVAN CONTINUES TO INFUSE
[2021-04-29 06:08] LABS: BASO% 0 % (0-3); EOS% 1 % (0-8); HEMATOCRIT 39.3 % (39.0-50.0); IMMATURE GRANULOCYTES 0.5 % (0.0-5.0); LYMPH% 6 % (15-41); MEAN CELL VOLUME 99.5 fL CALC (80.0-100.0); MEAN CORPUSCULAR HGB 30.4 pG CALC (26.0-32.0); MEAN CORPUSCULAR HGB CONC 30.5 g/dL CAL (32.0-36.0); MONO% 6 % (2-13); NEUT# 5.53 thou/uL (1.82-7.42); NEUT% 87 % (42-76); PLATELET COUNT 103 thou/uL (130-400); RED BLOOD COUNT 3.95 mill/uL (4.70-6.10); RED CELL DISTRI WIDTH 14.8 % (11.5-15.5)
[2021-04-29 06:25] LABS: BILIRUBIN, TOTAL 0.9 mg/dL (0.0-1.4); POTASSIUM 4.3 mmol/l (3.5-5.1)
[2021-04-29 06:38] LABS: ALBUMIN 2.4 g/dL (3.2-5.0); CREATININE 2.1 mg/dL (0.7-1.3); TOTAL PROTEIN 5.5 g/dL (6.3-8.2)
--- NOTE | 2021-04-29 07:10 | NUR ---
pt intubated and sedated; no apparent distress noted; assessment completed at this time; pupils equal and reactive; no s/sx of pain, no facial grimaces noted; no n/v noted; resp even and unlabored; lungs clear; skin color wnl; vent intact and maintained with settings of AC mde, tv 500, rate 34, peep 8.0, FiO2 of 70%; 7.5 ETT secured at the 27cm line; hr reg; strong pulses; edema noted to hands; sr on monitor; abd soft/ distended with bs present; no bm noted per verse writer; batista to gravity draining sediment yellow urine; cath strap intact; #20 saline locked to lac, #22 to rac and #22 to rfa saline locked; TLC patent to left subclav with ivf/ propofol gtt infusing at 40mcg/kg/min; no redness or edema noted at sites; bilat scds intact; restraints released and reapplied for nursing care; will continue to monitor
--- NOTE | 2021-04-29 08:00 | NUR ---
intubated and sedated; sr on monitor; restraints intact; vent settings maintained; repositioned; oral care; will continue to monitor
--- NOTE | 2021-04-29 09:16 | NUR ---
Dr Platt present at bedside to assess pt; pt able to open eyes when name is called; pt does not follow verbal commands;
--- NOTE | 2021-04-29 09:30 | NUR ---
st 120s on monitor; resp rate 42, bp 193/87; sedation resumed
--- NOTE | 2021-04-29 10:00 | NUR ---
intubated and sedated; st on monitor; batista to gravity; vent intact and maintained; repositioned to left norma; restraints intact; oral care; will continue to monitor
[2021-04-29 10:07] LABS: URINE BILIRUBIN - DIPSTICK NEGATIVE (NEGATIVE); URINE BLOOD DIPSTICK LARGE (NEGATIVE); URINE COLOR YELLOW; URINE GLUCOSE - DIPSTICK NEGATIVE (NEGATIVE); URINE KETONE NEGATIVE (NEGATIVE); URINE LEUK ESTERASE NEGATIVE (NEGATIVE); URINE PROTEIN - DIPSTICK 30 mg/dL (NEG-TRACE); URINE SPECIFIC GRAVITY 1.025; URINE UROBILINOGEN - DIPSTICK 0.2 E.U./dL (0.2)
[2021-04-29 10:08] LABS: URINE NITRITE - DIPSTICK NEGATIVE (Negative)
[2021-04-29 10:10] LABS: URINE EPITHELIAL CELLS FEW EPI/hpf (0-FEW); URINE MUCUS MODERATE hpf (NONE-FEW)
--- NOTE | 2021-04-29 11:20 | NUR ---
call received from family; passcode verified; update provided
--- NOTE | 2021-04-29 11:22 | NUR ---
#20 REMOVED FROM LAC WITH CATH TIP INTACT
--- NOTE | 2021-04-29 11:50 | NUR ---
Dr Platt informed of tachycardia; bp 153/76; orders to be placed
--- NOTE | 2021-04-29 12:05 | NUR ---
intubated and sedated; no apparent distress noted; iv intact and patent; batista to gravity; vent intact and maintained; st 120s on monitor; temp reassessed at 100.7 ax; tylenol to be admin; repositioned to right side; oral care with suctioning; will continue to monitor
--- NOTE | 2021-04-29 14:01 | NUR ---
vented and sedated; no apparent distress noted; vent intact and maintained; st on monitor; batista to gravity; repositioned supine; will continue to monitor
--- NOTE | 2021-04-29 14:39 | NUR ---
RT present at bedside; ETT advanced 2cm as per xray results/recommendations; repeat xray to be obtained
--- NOTE | 2021-04-29 14:43 | NUR ---
ET TUBE ADVANCED 2CM TO 29@ LIP PER EXRAY.
--- NOTE | 2021-04-29 15:00 | NUR ---
transferred to mattress x 6 staff
--- NOTE | 2021-04-29 16:00 | NUR ---
intubated and sedated; no apparent distress noted; respositioned; st on monitor; batista to gravity; air mattress; oral care; restraints continued; will continue to monitor
--- NOTE | 2021-04-29 18:10 | NUR ---
pt remains intubated and sedated; no apparent distress noted; vent intact and maintained; iv patent; no redness or edema noted at site; propofol continued at 40mcg/kg/min; batista to gravity; repositioned to left side; oral care/ suctioning; air mattress; scds;
--- NOTE | 2021-04-29 19:00 | NUR ---
REPORT RECEIVED FROM Kavon SWARTZ RN, CARE OF PT ASSUMED AT THIS TIME.
[2021-04-30] VITALS (24 sets, daily range): BP systolic 98–155; BP diastolic 55–86
--- NOTE | 2021-04-30 04:30 | NUR ---
AM LABS COLLECTED VIA L-SC TLC W/O DIFFICULTY. BED WEIGHT 138.4KG. CARRASCO EMPTIE 0F 400ML CLOUDY DARK YELLOW URINE.
[2021-04-30 05:31] LABS: HEMATOCRIT 41.5 % (39.0-50.0); HEMOGLOBIN 12.3 g/dl (14.0-18.0); MEAN CELL VOLUME 101.7 fL CALC (80.0-100.0); MEAN CORPUSCULAR HGB 30.1 pG CALC (26.0-32.0); MEAN CORPUSCULAR HGB CONC 29.6 g/dL CAL (32.0-36.0); RED BLOOD COUNT 4.08 mill/uL (4.70-6.10); RED CELL DISTRI WIDTH 15.2 % (11.5-15.5)
--- NOTE | 2021-04-30 05:33 | NUR ---
NYASIA BY Angi NAIK RRT.
--- NOTE | 2021-04-30 05:35 | NUR ---
18 FR. [place]-SUMP OG TUBE INSERTED. PLACEMENT VERIFIED VIA AUSCULATION OF AIR BOLUS AND GASTRIC CONTENT ASPIRATE. PCR PENDING.
[2021-04-30 05:58] LABS: CREATININE 2.7 mg/dL (0.7-1.3); POTASSIUM 4.9 mmol/l (3.5-5.1)
--- NOTE | 2021-04-30 07:00 | NUR ---
ASSUMED CARE OF PT AFTER BEDSDIE REPORT FROM NIGHT RN, NO S/S OF DISTRESS NOTED, PT INTUBATED AND SEDATED
--- NOTE | 2021-04-30 08:30 | NUR ---
INFORMED MD OF PT HAVING ABDOMINAL TENDERNESS NOTED BY FACE GRIMICE ON PALPATION. ABDOMINAL KUB ORDERED. NS D/JIMMY DUE TO NA LEVEL OF 151.
--- NOTE | 2021-04-30 10:02 | NUR ---
SPOKE WITH RADIOLOGY, UNABLE TO DO KUB DUE TO PT SIZE, INFORMED MD, REORDERED A ABDOMINAL CT
--- NOTE | 2021-04-30 10:36 | NUR ---
PT TRANSPORTED TO CT WITH RN AND RT
--- NOTE | 2021-04-30 11:59 | NUR ---
UPDATED FAMILY ON PT STATUS
--- NOTE | 2021-04-30 15:05 | NUR ---
PT INTUBATED AND SEDATED, NO CHANGES OR S/S OF DISTRESS NOTED
--- NOTE | 2021-04-30 19:10 | NUR ---
vent cont assisted by pt. pacs administrator shows sinus tach hr 117. og in place to lis draining black. lt subcl tlc in place ns infusing @ 10cchr, propofol infusing @ 30mcg/kg/min. batista cath in place urine yellow. urine spec collected & sent to lab. bilat scds, wrist restraints, fall & air/contact precautions cont. turned & repositioned. requires total care for all needs.
--- NOTE | 2021-04-30 22:00 | NUR ---
vent cont assisted by pt. hospital monitor shows sinus tach hr 116.
[2021-05-01] VITALS (22 sets, daily range): BP systolic 100–169; BP diastolic 57–83
--- NOTE | 2021-05-01 00:01 | NUR ---
vent cont assisted by pt. ivf infusing well.
--- NOTE | 2021-05-01 02:00 | NUR ---
no acute change in condition. cardiac technologist shows sinus tach hr 110.
--- NOTE | 2021-05-01 04:30 | NUR ---
blood drawn & sent to lab.
--- NOTE | 2021-05-01 05:00 | NUR ---
rt here. abgs drawn.
--- NOTE | 2021-05-01 05:30 | NUR ---
xray here. pcxr obtained.
[2021-05-01 05:53] LABS: BASO% 0 % (0-3); EOS% 0 % (0-8); HEMATOCRIT 40.7 % (39.0-50.0); HEMOGLOBIN 12.2 g/dl (14.0-18.0); IMMATURE GRANULOCYTES 0.8 % (0.0-5.0); LYMPH% 4 % (15-41); MEAN CELL VOLUME 101.5 fL CALC (80.0-100.0); MEAN CORPUSCULAR HGB 30.4 pG CALC (26.0-32.0); MONO% 7 % (2-13); NEUT# 7.49 thou/uL (1.82-7.42); NEUT% 88 % (42-76); PLATELET COUNT 106 thou/uL (130-400); RED BLOOD COUNT 4.01 mill/uL (4.70-6.10); RED CELL DISTRI WIDTH 15.2 % (11.5-15.5)
[2021-05-01 06:30] LABS: ALBUMIN 2.4 g/dL (3.2-5.0); CREATININE 3.1 mg/dL (0.7-1.3)
--- NOTE | 2021-05-01 08:00 | NUR ---
PT SEEN SEDATED, VENTED, RESTING IN THE BED IN NO ACUTE DISTRESS. SATS REMAIN AROUND 90%. PT TURNED TO LEFT SIDE WITH PILLOWS, AIR MATTRESS DOES NOT APPEAR TO HAVE TURNING FUNCTION.
[2021-05-01 10:17] LABS: ALBUMIN 2.6 g/dL (3.2-5.0); BILIRUBIN, TOTAL 0.6 mg/dL (0.0-1.4); CREATININE 3.1 mg/dL (0.7-1.3); POTASSIUM 5.1 mmol/l (3.5-5.1); TOTAL PROTEIN 5.9 g/dL (6.3-8.2)
[2021-05-01 10:28] LABS: C-REACTIVE PROTEIN 15.5 mg/dL (0-0.9)
--- NOTE | 2021-05-01 12:25 | NUR ---
no changes a thtis time. pt saida well. nad. credit risk specialist to monitor.
--- NOTE | 2021-05-01 13:05 | NUR ---
PT CONTINUES SEDATED WITH DIPROVAN AT 30 MKM. NO RESPONSE FROM PT WHEN TOUCHED. SON HAS CALLED AND WAS UPDATED.
--- NOTE | 2021-05-01 16:19 | NUR ---
PT TURNED TO LEFT SIDE FOR SKIN PROTECTION, SEEN AT 90% WHILE AT REST IN THE BED.
--- NOTE | 2021-05-01 18:26 | NUR ---
PT DID RECEIVE TWO BOLUSES OF 250 ML FREE WATER THIS SHIFT. RESIDUAL WAS <5. RESP THERAPIST MARISOL CHANGED OUT TUBE KOLB, ADVANCED TUBE X RAYS SHOWED IT FURTHER OUT THAN YESTERDAY. PCXR ORDERED.
--- NOTE | 2021-05-01 18:59 | NUR ---
xray here. pcxr obtained
--- NOTE | 2021-05-01 19:20 | NUR ---
vent cont assisted by pt. resps rapid. no response to verbal stimuli, when mouth care is given or when repositioned. bilat arms are more edematous tonight. telemetry monitor shows sinus tach hr 105. ivf infusing per lt subcl tlc. batista cath in place urine clear yellow. bilat scds, air mattress, fall & air/contact precautions cont.
--- NOTE | 2021-05-01 22:00 | NUR ---
vent cont assisted by pt. telemetry monitor shows sinus tach.
[2021-05-02] VITALS (23 sets, daily range): BP systolic 104–161; BP diastolic 46–83
--- NOTE | 2021-05-02 00:01 | NUR ---
vent cont assisted by pt. batista draining well.
--- NOTE | 2021-05-02 02:00 | NUR ---
vent cont assisted by pt. cardiac surgeon shows sinus tach.
--- NOTE | 2021-05-02 03:45 | NUR ---
blood drawn & sent to lab. bath given x2 assists.
--- NOTE | 2021-05-02 05:10 | NUR ---
rt here. abgs drawn.
[2021-05-02 05:54] LABS: HEMATOCRIT 44.8 % (39.0-50.0); HEMOGLOBIN 13.4 g/dl (14.0-18.0); IMMATURE GRANULOCYTES 0.7 % (0.0-5.0); MEAN CELL VOLUME 100.7 fL CALC (80.0-100.0); MEAN CORPUSCULAR HGB 30.1 pG CALC (26.0-32.0); MEAN CORPUSCULAR HGB CONC 29.9 g/dL CAL (32.0-36.0); NEUT# 11.99 thou/uL (1.82-7.42); RED BLOOD COUNT 4.45 mill/uL (4.70-6.10)
[2021-05-02 06:06] LABS: ALBUMIN 2.8 g/dL (3.2-5.0); CREATININE 2.7 mg/dL (0.7-1.3); MAGNESIUM 3.2 mg/dL (1.6-2.3)
--- NOTE | 2021-05-02 06:10 | NUR ---
xray here. pcxr obtained.
[2021-05-02 06:15] LABS: POTASSIUM 5.2 mmol/l (3.5-5.1)
--- NOTE | 2021-05-02 07:51 | NUR ---
PT SEEN SEDATED, VENTED, RESTING IN THE BED. LUNGS ARE CLEAR, FIO2 80%, SATS 92%. NO RESPONSE TO VOICE OR TOUCH PER DIPRIVAN AT 30 MKM. AIR MATTRESS IN USE.
--- NOTE | 2021-05-02 11:08 | NUR ---
PT WITH OG CLOGGED, IMPROVED WITH COKE AND REPOSITIONING. PROPOFOL DECREASED FROM 30 MKM TO 20 MKM WITHOUT EVIDENCE OF WAKING. PT PULLED UP IN THE BED, SEEN WITH SATS 92%.
--- NOTE | 2021-05-02 15:24 | NUR ---
PT HAS RECEIVED THIRD DOSE OF FREE WATER 240 ML VIA OG. THE TUBE IS PATENT AGAIN, ALTHOUGH THE WATER NEEDED TO BE PUSHED IN. SWELLING NOTED TO BILATERAL ARMA, TO MONITOR.
--- NOTE | 2021-05-02 17:33 | NUR ---
DR MONTALVO HAS CALLED FOR UPDATE, IVF RATE CHANGED. PT WITH SWELLING NOTED TO ARMS, INCREASED FROM 2-3 DAYS AGO. PT CONTINUES SEDATED WITH DIPRIVAN 20 MKM, NO RESPONSE NOTED.
--- NOTE | 2021-05-02 19:45 | NUR ---
PATIENT REMAINS INTUABTED AND SEDATED. VENT SETTINGS PER VENT INTERVENTION SCREEN. O2 SAT 94% GENERALIZED EDEMA PRESENT. ARMS ELEVATED ON PILLOWS. LSCTLC IN PLACE. PROPOFOL INFUSING AT 20 MCG/KG/MIN WITH RASS -4. SHIFT ASSESSMENT COMPLETED. FURNACE CHARGING MACHINE OPERATOR SHOWS ST, HR 120'S. MEDICATED WITH LOPRESSOR 5 MG IVP ORDERED FOR ELEVATED HR. PATIENT ON AIR MATTRESS. BILATERAL SCD'S IN PLACE. AIR SCRUBBER ON IN ROOM.
--- NOTE | 2021-05-02 22:00 | NUR ---
VSS. O2 SAT 94% REMAINS ON VENT. SEDATION ADEQUATE, RASS -4.
[2021-05-03] VITALS (9 sets, daily range): BP systolic 83–140; BP diastolic 49–61
--- NOTE | 2021-05-03 | NUR ---
VENT SETTINGS UNCHANGED FROM EARLIER. MAINTAINING O2 SAT 94% VSS. ST ON MONITOR, HR 120'S.
--- NOTE | 2021-05-03 02:30 | NUR ---
ST ON MONITOR, HR SUSTAINING 120'S. MEDICATED WITH LOPRESSOR 5 MG IVP ORDERED FOR ELEVATED HR.
--- NOTE | 2021-05-03 04:00 | NUR ---
VSS REMAIN STABLE. MAINTAINING O2 SAT 94% ST ON MONITOR., HR 110'S.
--- NOTE | 2021-05-03 04:30 | NUR ---
COMPLETE BED BATH GIVEN, LINENS CHANGED, TURNED AND REPOSITIONED. SUX ETT FOR SMALL AOUNT OF WHITE SECRETIOSN AND ORALLY FOR MODERATE AMOUNT OF WHITE SECRETIONS.
[2021-05-03 05:38] LABS: HEMATOCRIT 42.3 % (39.0-50.0); HEMOGLOBIN 12.5 g/dl (14.0-18.0); IMMATURE GRANULOCYTES 0.6 % (0.0-5.0); MEAN CELL VOLUME 102.7 fL CALC (80.0-100.0); MEAN CORPUSCULAR HGB 30.3 pG CALC (26.0-32.0); MEAN CORPUSCULAR HGB CONC 29.6 g/dL CAL (32.0-36.0); NEUT# 14.43 thou/uL (1.82-7.42); RED BLOOD COUNT 4.12 mill/uL (4.70-6.10); RED CELL DISTRI WIDTH 15.1 % (11.5-15.5)
--- NOTE | 2021-05-03 05:44 | NUR ---
ABGS DRAWN PER RT.
[2021-05-03 06:13] LABS: ALBUMIN 2.5 g/dL (3.2-5.0); C-REACTIVE PROTEIN 8.9 mg/dL (0-0.9); CREATININE 3.6 mg/dL (0.7-1.3)
[2021-05-03 06:27] LABS: POTASSIUM 6.1 mmol/l (3.5-5.1)
--- NOTE | 2021-05-03 07:34 | NUR ---
TUBE EXCHANGED BY ANESTHESIA. CHANGED TO SZ 8 ET TUBE 29@ LIP. FIO2 INCREASED TO 100%.
--- NOTE | 2021-05-03 08:07 | NUR ---
PT REQUIRED REINTUBATION AFTER PCXR SHOWED TUBE FURTHER OUT THAN IT SHOULD BE, THIS IN SPITE OF RT ADVANCING IT. ANESTHESIST JONATHAN PERFORMED REINTUBATION, PT NOW RESTS IN THE BED IN NO ACUTE DISTRESS, SATS SEEN IN UPPER 80s AT THIS TIME.
--- NOTE | 2021-05-03 11:23 | NUR ---
AT 11:05, PT WAS TERMINALLY EXTUBATED TO 2L NC.
--- NOTE | 2021-05-03 11:25 | NUR ---
DR TANNER SPOKE WITH PT'S JOSE THIS MORNING, AND IT WAS HER DETERMINATION THAT HER WOULD NOT HAVE WANTED TO BE KEPT ALIVE WITH LIFE [employer], AGREED TO TERMINAL EXTUBATION THIS MORNING. JOSE DID CONFIRM THIS WHEN HAIR SPRING WINDER SPOKE TO HER SOON THEREAFTER. PT WAS THEN EXTUBATED AT 1105 AND AT 1110. JOSE WAS UPDATED ON HIS EXPIRATION. SON SANDOVAL HAD CALLED PRIOR TO EXTUBATION, WAS AWARE OF WHAT WAS HAPPENING.
--- NOTE | 2021-05-03 13:23 | NUR ---
[employer] WAS CALLED AFTER PT , WAS NOT ACCEPTED DONOR. [facility] [employer] [facility] WAS NOTIFIED DIRECTED BY HIS JOSE. THEY WILL HRIS COORDINATOR BODY WITHIN THE HOUR. BELONGING BAG CONTAINS FLIPFLOPS, T-SHIRT, PAJAMA PANTS, BASEBALL CAP, TWO RINGS AND ONE NECKLACE.
--- NOTE | 2021-05-03 16:38 | NUR ---
called [facility] at spoke to jared for the pickup of this bed was given confirmation number [id number].
== END 2021-05-03 14:45 | disposition expired | DRG 207 ==
LOC: ED 16:17 → ED-I 18:25 → ED 18:33 → ED-I 18:34 → ICU 22:11 → ED-I 22:11 → ICU 04-24 18:45 → ED-I 04-24 18:45 → ICU 04-24 21:30
PROVIDERS: Emergency Medicine; Hospitalist; Internal Medicine Nephrology; Nurse Practitioner; ADMIT Internal Medicine; ATTEND Internal Medicine
PROC: XW033E5 Introduction of Remdesivir Anti-infective into Peripheral Vein, Percutaneous Approach, New Technology Group 5 (ICD-10-PCS; principal; 2021-04-24)
PROC: 5A09457 Assistance with Respiratory Ventilation, 24-96 Consecutive Hours, Continuous Positive Airway Pressure (ICD-10-PCS; 2021-04-24)
PROC: 5A1955Z Respiratory Ventilation, Greater than 96 Consecutive Hours (ICD-10-PCS; 2021-04-27)
PROC: 0BH17EZ Insertion of Endotracheal Airway into Trachea, Via Natural or Artificial Opening (ICD-10-PCS; 2021-04-27)
PROC: 02HV33Z Insertion of Infusion Device into Superior Vena Cava, Percutaneous Approach (ICD-10-PCS; 2021-04-28)
PROC: 4A02X4A Measurement of Cardiac Electrical Activity, Guidance, External Approach (ICD-10-PCS; 2021-04-28)
PROC: 0B21XEZ Change Endotracheal Airway in Trachea, External Approach (ICD-10-PCS; 2021-05-03)
DX: U07.1 COVID-19 (principal); J12.82 Pneumonia due to coronavirus disease 2019; J96.01 Acute respiratory failure with hypoxia; N17.0 Acute kidney failure with tubular necrosis; N39.0 Urinary tract infection, site not specified; E87.0 Hyperosmolality and hypernatremia; E87.2 Acidosis; I10 Essential (primary) hypertension; D69.6 Thrombocytopenia, unspecified; D64.9 Anemia, unspecified; E86.9 Volume depletion, unspecified; E87.6 Hypokalemia; E87.5 Hyperkalemia; E83.41 Hypermagnesemia; I95.9 Hypotension, unspecified; G89.29 Other chronic pain; M54.5 Low back pain; N40.0 Benign prostatic hyperplasia without lower urinary tract symptoms; B19.20 Unspecified viral hepatitis C without hepatic coma; B95.7 Other staphylococcus as the cause of diseases classified elsewhere
CPT/HCPCS: S0164